=== PATIENT | male | born 2005 | race Caucasian/White ===

== ENCOUNTER 2024-07-28 17:59 | Emergency (ER) | payer OTHER, SELFPAY ==
[2024-07-28 18:01] VITALS: BP 167/81
--- NOTE | 2024-07-28 18:51 | ED.GENMED ---
History of Present Illness
General
Chief Complaint: Facial Problem
Source: patient
Time Seen by Provider: 07/28/24 18:22
History of Present Illness
History of Present Illness:
19-year-old male with past medical history of GERD presenting to the ER for evaluation after he hit his face against a skin board this past Saturday, bruising and swelling to the nasal bridge and inferior to the left orbit, has an appointment with
ENT who wanted the patient to obtain imaging. There was no LOC, no vomiting, no visual changes or any other concerns. Tetanus is up-to-date.
Past History
Past History
ED Past Medical History: GERD
ED Past Surgical History: None
Social History
Tobacco: Non-smoker
Alcohol: Occasional
Drug: None
Personal: Single
Living: with family
Review of Systems
Review of Systems
All Other Systems: ROS reviewed and negative except as documented in HPI and ROS
Phy Exam
Physical Exam
Physical Exam:
GENERAL: Alert , in no apparent distress
EYE: conjunctiva clear, EOMI,, PERRL, pupils 5 mm
Head: Normocephalic atraumatic
NECK: Supple,
ENT: mmm. Soft tissue swelling of the nasal bridge with small abrasion, ecchymosis inferior to the left orbit but no proptosis, there is also small ecchymosis inferior to the right orbit but again no proptosis. no septal hematoma
LUNGS: no acute respiratory distress
NEUROLOGICAL: Alert and oriented
SKIN: Warm and dry, skin intact.
MUSCULOSKELETAL: well perfused.
PSYCH: Normal and appropriate interaction.
Scores
Heart Failure Risk
Heart Failure Risk Score: Not Applicable
Heart Score for Chest Pain Patients
STEMI patient?: Not applicable
Withdrawal Assessment of Alcohol
Withdrawal Assessment Completed?: Not applicable
Course
Orders/Labs/Results
Orders:
Orders
07/28/24 18:00
Facial Bones wo Contrast CT [CT Facial Bones W/o Iv Contras] Urgent
Comment:
Reason For Exam: fall
Vital Signs
Initial and Last Documented VS:
Initial Vital Signs
Temp Pulse Resp BP Pulse Ox
98 F 55 16 167/81 100
07/28/24 18:01 07/28/24 18:01 07/28/24 18:01 07/28/24 18:01 07/28/24 18:01
Last Documented Vital Signs
Temp Pulse Resp BP Pulse Ox
98 F 55 16 167/81 100
07/28/24 18:01 07/28/24 18:01 07/28/24 18:01 07/28/24 18:01 07/28/24 18:01
MDM/Problems Addressed
Differential Diagnosis Includes:
Nasal fracture, contusion, orbital fracture, concussion
MDM/Problems Addressed:
19-year-old male presenting to the ER for evaluation after injuring nose and orbit this past Saturday after falling on a skin board. Has appointment with the ENT who wanted patient to obtain imaging. CT scan of the facial bones ordered.
Anticipate discharge home with continued outpatient ENT follow
*Radiology
Radiology exam reviewed: radiology read reviewed
*Pulse Oximetry
Patient hypoxic: no
*Critical Care Note
Total Time (30-74mins, 75-104mins- exclusive of procedures): Not Applicable
Patient Management
Escalation/DeEscalation of care consider admission/obs:
Patient CT shows bilateral nasal bone fracture with slight deviation of the nasal bone to the right. Patient already has ENT follow-up. Nasal fracture precautions discussed. Stable for discharge
ED Attending Note
-
Portions of this chart may have been created with voice recognition software.� Occasional wrong word or��sound alike� substitutions may have occurred due to the inherent limitations of voice recognition software.
Discharge Plan
Departure
Patient Disposition: Home (Routine Discharge)
Date of Disposition: 07/28/24
Time of Disposition: 19:26
Patient with high blood pressure during this ER visit?: Yes
Discharge Problem:
Fracture closed, nasal bone
Instructions: Nose fracture
Referrals:
Jose March DO [Family Provider]
Interventions
Interventions:
*Risk Screen - Suicide Last Done: 07/28/24 18:03
*Neglect/Abuse Screening Last Done: 07/28/24 18:03
*Nursing Disposition Last Done: 07/28/24 19:28
ED- Neurological Assessment Last Done: 07/28/24 18:52
ED-Skin Assessment Last Done: 07/28/24 18:52
Discharge Date and Time
Discharge Date/Time: 07/28/24 19:29
Print Language: THAI
== END 2024-07-28 19:29 | disposition home or self-care (01) ==
LOC: EMR 17:59
PROVIDERS: EMERGENCY PHYSICIAN Emergency Medicine; FAMILY PHYSICIAN Family Medicine
DX: S02.2XXA Fracture of nasal bones, initial encounter for closed fracture (principal); S00.83XA Contusion of other part of head, initial encounter; W22.8XXA Striking against or struck by other objects, initial encounter
CPT/HCPCS: 99284; 70486